=== PATIENT | female | born 2005 | race Caucasian/White ===

== ENCOUNTER 2024-03-23 17:43 | Inpatient (IN) | payer MEDICAID, SELFPAY ==
[2024-03-23] VITALS (25 sets, daily range): BP systolic 112–144; BP diastolic 31–98; PULSE 96–140; RESP 14–99; TEMP 36.8; O2SAT 97–100; BMI 26.7
--- NOTE | 2024-03-23 18:28 | XR_ITS ---
Examination: Complete OB ultrasound greater than 14 weeks Date and time of exam: March 23, 2024 1835 hrs. Indications: Pelvic pain back pain pelvic contractions one week Findings: Viable intrauterine single fetus with single amniotic sac Cephalic Cardiac motion 121 BPM Placenta posterior no abruption grade 2 Umbilical cord insertion seen Study terminated before measurement of amniotic fluid spine maternal right Cervix 4.0 cm Composite estimated gestational age based on BPD, head circumference, abdominal circumference, femur length is 38 weeks 4 days Estimated weight 3565 g. Survey of intracranial anatomy, spinal anatomy, abdominal anatomy, four-chamber heart performed with no abnormalities identified. Impression: Limited study Viable intrauterine gestation cephalic presentation. Placenta posterior no abruption Estimated gestational age 38 weeks 4 days.
[2024-03-23] MEDS: RINGERS LACTATED 1000 ML 1,000 ML 999 ML IV (18:40)
[2024-03-23] MEDS: FAMOTIDINE INJ 10 MG/ML VIAL 2 ML 20 MG IV (19:02)
[2024-03-23] MEDS: METOCLOPRAMIDE INJ 5 MG/ML VIAL 2 ML 10 MG IVP (19:02)
[2024-03-23 19:03] LABS: Collection Type, Urine Voided
[2024-03-23] MEDS: ceFAZolin/D5W 2 GM IV 2 GM/100 ML BAG IV (19:03)
--- NOTE | 2024-03-23 19:08 | PD.LDHP ---
Documentation for date of: 03/23/24 OB Labor/Induct. HPI History of Present Illness History of present illness: H and P dictated on STAT line #9 in [facility] [id number]. Meds Home Medications and Allergies Allergies Allergy/AdvReac Type Severity Reaction Status Date / Time No Known Allergies Allergy Verified 02/24/18 15:14 OB Exam Physical Exam Vital signs: Pulse BP Pulse Ox 96 138/89 H 99 03/23/24 19:01 03/23/24 19:01 03/23/24 18:59 OB Results Labs 03/23/24 18:35 03/23/24 18:35
[2024-03-23 19:11] LABS: Basophils % (Auto) 0 % (0-2.5); Eosinophils % (Auto) 0 % (0-10); Hematocrit 34.6 % (36.0-46.0); Hemoglobin 11.3 g/dL (12.0-16.0); Immature Granulocytes % (Auto) 0 % (0-0); Immature Granulocytes Auto 0.04 Thou/mm3 (0.00-0.00); Lymphocytes # (Auto) 1.1 Thou/mm3 (1.0-4.8); Lymphocytes % (Auto) 12 % (10-50); Mean Corpuscular HGB Conc 32.7 g/dl (31.0-37.0); Mean Corpuscular Hemoglobin 26.2 pg (25.0-35.0); Mean Corpuscular Volume 80 fL (80-100); Monocytes # (Auto) 0.6 Thou/mm3 (0.0-0.8); Monocytes % (Auto) 7 % (0-12); Neutrophils # (Auto) 7.3 Thou/mm3 (1.8-7.7); Neutrophils % (Auto) 80 % (37-80); Nucleated Red Blood Cell % 0 /100 WBC (0); Platelet Count 110 Thou/mm3 (140-440); RDW Standard Deviation 54.5 fL (36.4-46.3); Red Blood Count 4.32 Miln/mm3 (4.00-5.20); White Blood Count 9.1 Thou/mm3 (4.5-11.0)
[2024-03-23 19:18] LABS: Bilirubin,Urine Negative (Negative); Blood,Urine Negative (Negative); Clarity,Urine Clear (Clear/Hazy); Color,Urine Lt-Yellow (Lt Yel-Yel); Glucose, Urine Negative (Negative); Ketones,Urine Negative (Negative); Leukocyte Esterase,Urine Positive (Negative); Nitrite,Urine Negative (Negative); Protein,Urine Negative (Neg - Trace); RBC,Urine 1 /hpf (0-3); Specific Gravity,Urine 1.009 (1.001-1.035); Squamous Epithelial Cell,Urine 5 /hpf (0-5); Urobilinogen,Urine Negative mg/dL (0.0-1.0); WBC,Urine 4 /hpf (0-5)
[2024-03-23 19:38] LABS: Fibrinogen 439 mg/dL (175-375); INR 0.9 (0.9-1.3); Partial Thromboplastin Time 23.8 Seconds (22.0-36.0)
[2024-03-23 19:48] LABS: Anion Gap 9 (7-16); BUN/Creatinine Ratio 10 Ratio (12-20); Blood Urea Nitrogen 6 mg/dL (9-23); Chloride 106 mMol/L (98-107); Creatinine (Component) 0.6 mg/dL (0.6-1.3); Estimated Creatinine Clearance 133.7 mL/min (>60); Glucose 101 mg/dL (74-106); Potassium 4.1 mMol/L (3.4-5.1); Sodium 138 mMol/L (136-145); eGFR > 60 See Note
[2024-03-23 19:49] LABS: Alanine Aminotransferase 10 U/L (10-49); Albumin/Globulin Ratio 1.8 (1.2-2.2); Alkaline Phosphatase 142 U/L (46-116); Aspartate Amino Transferase 17 U/L (0-34); Bilirubin,Total 0.3 mg/dL (0.3-1.2); Calcium 9.5 mg/dL (8.3-10.6); Calcium (Corrected) 9.5 mg/dL (8.5-10.1); Globulin 2.2 gm/dL (2.3-3.5); LDH (Lactate Dehydrogenase) 202 U/L (120-246); Osmolality,Calculated 273 (275-295); Total Protein 6.2 gm/dL (5.7-8.2)
[2024-03-23 19:56] LABS: Syphilis Nonreactive (Nonreactive)
--- NOTE | 2024-03-23 20:05 | ESDS_ITS ---
DS: Providers Provider Date of admission: 03/23/24 19:55 Primary care physician: Physician No Primary/Family Admitting Provider: Jorge Luis King MD Attending Provider on Admission: Jorge Luis King MD Attending Provider on DC: Jorge Luis King MD Discharging Provider: Jorge Luis King MD DS: Diagnosis Discharge Diagnosis (1) Gestational hypertension: Status: Acute (2) Placental abruption: Status: Acute (3) delivery delivered: Status: Acute (4) Endometriosis: Status: Acute Problem List Completed Was Problem List Reviewed/Reconciled?: Yes Summary/Hosp Course Brief History: H and P dictated on STAT line #[address] [facility] [id number]. Time Spent with Patient Time attestation: Total time spent providing and/or coordinating discharge services: Exam Vital Signs Temp Pulse Resp BP Pulse Ox 98.2 F 96 16 138/89 H 99 03/23/24 18:02 03/23/24 19:01 03/23/24 18:02 03/23/24 19:01 03/23/24 18:59 Discharge Plan Plan Patient Disposition: HOME (Self Care) Patient condition on transfer: Stable Prescriptions/Referrals Prescriptions/Med Rec: New hydrocodone-acetaminophen 5-325 mg tablet 1 tab PO Q6H MDD 4 PRN (Reason: pain) Qty: 20 0RF ibuprofen 600 mg tablet 600 mg PO Q6H PRN (Reason: pain) Qty: 30 0RF No Action 27 mg iron- 0.8 mg Tablet 1 tab PO QDAY ferrous sulfate 325 mg (65 mg iron) tablet 325 mg PO QDAY Referrals: No Primary/Family,Physician [Primary Care Provider] - Patient/Caregiver Discharge Instructions Discharge Activity: activity as tolerated Other Discharge Activity Instructions:: Follow up office 1 week. Print Language: Sami Stand Alone Forms: Jennifer Award Info., Patient Portal Info Letter Planned Discharge Date 03/25/24
[2024-03-23] MEDS: OXYTOCIN in NS 20 units 20 UNIT/1,000 ML BAG 125 UNIT IV (20:10)
[2024-03-23] MEDS: KETOROLAC INJ 30 MG/ML VIAL IVP (21:59)
[2024-03-24] VITALS (7 sets, daily range): BP systolic 111–136; BP diastolic 75–89; PULSE 84–105; RESP 16–18; TEMP 36.9–37.1; O2SAT 96–99
[2024-03-24] MEDS: OXYTOCIN in NS 20 units 20 UNIT/1,000 ML BAG 125 UNIT IV (01:52)
[2024-03-24 02:23] LABS: Basophils % (Auto) 0 % (0-2.5); Eosinophils % (Auto) 0 % (0-10); Hematocrit 30.7 % (36.0-46.0); Hemoglobin 10.1 g/dL (12.0-16.0); Immature Granulocytes % (Auto) 0 % (0-0); Immature Granulocytes Auto 0.07 Thou/mm3 (0.00-0.00); Lymphocytes # (Auto) 1.2 Thou/mm3 (1.0-4.8); Lymphocytes % (Auto) 7 % (10-50); Mean Corpuscular HGB Conc 32.9 g/dl (31.0-37.0); Mean Corpuscular Hemoglobin 26.6 pg (25.0-35.0); Mean Corpuscular Volume 81 fL (80-100); Monocytes # (Auto) 1.1 Thou/mm3 (0.0-0.8); Monocytes % (Auto) 6 % (0-12); Neutrophils # (Auto) 14.9 Thou/mm3 (1.8-7.7); Neutrophils % (Auto) 86 % (37-80); Nucleated Red Blood Cell % 0 /100 WBC (0); Platelet Count 99 Thou/mm3 (140-440); RDW Standard Deviation 55.5 fL (36.4-46.3); Red Blood Count 3.79 Miln/mm3 (4.00-5.20); White Blood Count 17.4 Thou/mm3 (4.5-11.0)
[2024-03-24 02:44] LABS: Amphetamine/Metham Scrn,Ur OB Negative (Negative); Benzoylecgonine Screen, Ur OB Negative (Negative); Opiate Screen,Urine OB Positive (Negative); THC Screen,Urine OB Negative (Negative)
[2024-03-24 02:45] LABS: Opiates U Confirm* See Sep Rpt
[2024-03-24] MEDS: ceFAZolin/D5W 2 GM IV 2 GM/100 ML BAG IV ×3 (02:59→23:37)
[2024-03-24] MEDS: KETOROLAC INJ 30 MG/ML VIAL IVP ×3 (04:07→16:52)
--- NOTE | 2024-03-24 07:39 | ESHP_ITS ---
RE: BARBARA SANCHES : 2005 DATE OF ADMISSION: 03/23/2024 HISTORY OF PRESENT ILLNESS: This is a 18-year-old 1, para 0, with due date of 04/10, with intrauterine at 37 weeks and 3 days who presents to labor and delivery complaining of vaginal bleeding and severe abdominal and back pain rating at 8/10. Upon presentation to labor and delivery, the patient was noted to have elevated blood pressures and maternal heart rate as high as 140 with category 1 tracing and uterine tachysystole. The patient reports feeling contractions, but also having tense abdomen in between the contractions and she cannot get comfortable. ALLERGIES: NO KNOWN DRUG ALLERGIES. MEDICATIONS: 1. multivitamin 1 p.o. daily. 2. Ferrous sulfate 325 mg one p.o. daily. PAST MEDICAL HISTORY: Gestational hypertension, gestational thrombocytopenia, iron deficiency anemia. PAST SURGICAL HISTORY: Denies. SOCIAL HISTORY: She has use of marijuana early in the with a positive urine drug screen, 09/22/2023. FAMILY HISTORY: Breast cancer. REVIEW OF SYSTEMS: She denies any chest pain, palpitations, shortness of breath or lower extremity pain. PHYSICAL EXAMINATION: VITAL SIGNS: Blood pressure 148/94 mmHg, heart rate 120 bpm, respirations 18, temperature 98.6. HEENT: Oropharynx and sclerae are clear. LUNGS: Clear to auscultation bilaterally. HEART: Regular rate and rhythm. ABDOMEN: Term size. Fundus is tender to palpation with no relaxation between contractions. EXTREMITIES: Nontender. SKIN: No gross rashes or lesions. NEUROLOGIC: No focal deficits. ASSESSMENT: Intrauterine at 37 weeks and 3 days, gestational hypertension, gestational thrombocytopenia, placental abruption. PLAN: Emergency delivery. Informed consent was obtained. The patient made aware of the risks, complications, alternatives and benefits of the proposed procedure and she agrees. DT: 19:07:45 TT: 20:21:00 Ref: [id number] - TID: [id number] MTDD
--- NOTE | 2024-03-24 07:40 | ESOP_ITS ---
RE: BARBARA SANCHES : 2005 DATE OF OPERATION: 03/23/2024 PREOPERATIVE DIAGNOSES: Intrauterine at 37 weeks' gestation, maternal tachycardia, uterine tachysystole, vaginal bleeding and clinical examination consistent with placental abruption. POSTOPERATIVE DIAGNOSES: Intrauterine at 37 weeks' gestation, maternal tachycardia, uterine tachysystole, vaginal bleeding, placental abruption confirmed, and endometriosis. PROCEDURE PERFORMED: Primary low transverse section via Pfannenstiel skin incision. SURGEON: Jorge Luis King DO COTTRELL OPERATOR: UBALDO Lopez ANESTHESIA: Spinal. ANESTHESIOLOGIST: Giovanni Leonardo CRNA ESTIMATED BLOOD LOSS: 700 mL. COMPLICATIONS: None. COUNTS: Correct. PATHOLOGY: Placenta. FINDINGS: A live infant, cephalic presentation. clear amniotic fluid. , see RN notes. Inferior placental edge with placental abruption. Superficial endometriotic implants on the both. Posterior uterosacral ligaments in both ovaries. DESCRIPTION OF PROCEDURE: After proper informed consent was obtained and the patient was made aware of the risks, complications, alternatives, and benefits of the proposed procedure, she was taken to the operating room where she underwent induction of spinal anesthesia. She was placed in the dorsal supine position. She was prepped and draped in the usual sterile fashion. A timeout was performed. A Pfannenstiel skin incision was made with scalpel and carried through to the underlying layer of fascia with the Bovie. The fascia was nicked in the midline. Incision was extended bilaterally with the Bovie. The inferior aspect of the fascial incision was grasped with Manuel clamps and elevated. The underlying rectus muscles were dissected off with the Bovie. The rectus muscles were in the midline. The peritoneum was identified between 2 Terrell clamps and entered sharply with Metzenbaum scissors. The incision was extended superiorly and inferiorly with good visualization of the bladder. The bladder blade was then inserted. The vesicouterine peritoneum was incised transversely and bladder flap was created digitally. Bladder blades were reinserted. The lower uterine segment was incised in transverse fashion with scalpel. The incision was extended bilaterally digitally. The 's head was delivered. The mouth and nose were suctioned with bulb suction. Shoulder and body were delivered atraumatically. The cord was clamped and cut. The infant was handed off to the awaiting pediatric staff. Cord blood was sent. Placenta was then removed manually. A quarter of the placenta was from the wall of the uterus with large retroplacental hemorrhage. The placenta was sent to Pathology. The uterus was exteriorized and cleared of all clots and debris. The uterine incision was repaired with #1-0 chromic catgut suture in a running locking fashion. A second layer of same suture was used to imbricate the first layer and obtained excellent hemostasis. The vesicouterine peritoneum was closed with 2-0 chromic catgut suture in running fashion. The uterus was firm. It was returned to the abdomen. The gutter was cleared of all clots and debris. The peritoneum was closed with 0 chromic catgut suture in running fashion. The muscle was closed with 0 chromic catgut suture in running fashion. The fascia was closed with 0 Vicryl beginning at each angle and ending at center in running fashion. Subcutaneous tissue was irrigated with normal saline solution and found to be hemostatic, closed with 2-0 chromic catgut suture in running fashion. The skin was closed with 4-0 Monocryl. Dermabond Prineo dressing was applied. A sterile pressure dressing was applied. She tolerated the procedure well. Counts were correct. I discussed with the patient the nature of her condition, intraoperative findings, and expectation for recovery. All questions were answered. DT: 20:02:23 TT: 21:34:00 Ref: [id number] - TID: [id number] MTD
--- NOTE | 2024-03-24 07:48 | ESPR_ITS ---
RE: BARBARA SANCHES : 2005 DATE OF SERVICE: 03/24/2024 Postop day #1. The patient denies any problem or complaint. She has got adequate urine output in her Dawson catheter. She denies any nausea or vomiting. She is tolerating a regular diet. She is passing flatus. She denies any excessive vaginal bleeding. She denies any dizziness or lightheadedness. She denies any chest pain, palpitations, shortness of breath or lower extremity pain. OBJECTIVE: Vital Signs: Blood pressure 124/77, heart rate 84, respirations 16, temperature is 98.7. Lungs: Clear to auscultation bilaterally. Heart: Regular rate and rhythm. Abdomen: Fundus is firm. Dressing dry and intact. Extremities: Nontender. Hemoglobin pre-delivery is 11.3, post-delivery is 10.1. Platelet count is 99,000. ASSESSMENT: Postoperative day #1 status post delivery. Anemia, but hemodynamically stable. Gestational thrombocytopenia with stable platelet count. PLAN: Remove dressing, encourage ambulation, support, prophylactic antibiotics for 24 hours, monitor for spontaneous voiding. DT: 07:29:03 TT: 07:47:00 Ref: [id number] - TID: [id number]
--- NOTE | 2024-03-24 11:05 | PC.SS ---
OPEN SHANK COVERER conducted bedside contact with the patient to address nursing referral indicating patient possessed history of THC use. OPEN SHANK COVERER introduced self and role. Present with patient was mother, sister and Nicanor LANDAVERDE Burton. Patient gave permission for OPEN SHANK COVERER to discuss basis of referral with visitors present. Patient confirmed use of THC for recreational purposes. Upon confirmation of patient ceased use. Patient informed OPEN SHANK COVERER of no further plans to utilize THC. Patient?s toxicology report negative. Patient resides with FOB and family. Harper, Emily; is the patient?s first child. Infant delivered via . Patient plans on breast feeding infant. Patient?s WIC application is pending. Patient is not aligned with SNAP or TANF. Patient denies history of alcohol/drug abuse. Patient denies CWS intervention. Patient denies episodes of domestic violence. Dr. King provided OB services. Patient states consistency with OB appointments. Patient describes Nicanor LANDAVERDE; as involved with the (Emily). Patient has access to appropriate supplies and equipment. Family will provide transportation upon discharge. Patient describes possessing support system consisting of FOB and family. OPEN SHANK COVERER provided patient with community resources to include: [employer], Warm Line and community information. No further intervention required at this time, social sciences chair will be available to address any further concerns. OPEN SHANK COVERER updated bedside nurse.
[2024-03-24] MEDS: RINGERS LACTATED 1000 ML 1,000 ML 125 ML IV (15:35)
[2024-03-24] MEDS: IBUPROFEN TAB 400 MG TABLET 800 MG PO (21:46)
[2024-03-25 04:00] VITALS: BP 126/81; PULSE 94; RESP 16; TEMP 36.9; O2SAT 99
[2024-03-25] MEDS: HYDROcodone/APAP 5/325 TABLET 1 TAB PO ×2 (04:44→09:01)
[2024-03-25] MEDS: ceFAZolin/D5W 2 GM IV 2 GM/100 ML BAG IV (08:04)
[2024-03-25 08:30] VITALS: BP 127/84; PULSE 92; RESP 18; TEMP 37.3; O2SAT 99
--- NOTE | 2024-03-25 08:56 | PD.LDDELS ---
Data ([facility]) Data : 1 Para: 0 Term: 0 : 0 : 0 Delivery Data ([facility]) Labor Data ROM Date: 03/23/24 ROM Time: 19:22 Rupture Type: AROM Amniotic Fluid: Clear Delivery Data EDC: 04/10/24 EDC calculated by:: LMP/early US confirmation Labor Onset Stage 1 Date: 03/23/24 Labor Onset Stage 1 Time: 19: Labor Onset Stage 2 Date: 03/23/24 Labor Onset Stage 2 Time: 19:22 Delivery Date: 03/23/24 Delivery Time: 19:22 Gestational age (weeks): 37 Gestational age (days): 3 Placenta Delivery Date: 03/23/24 Placenta Delivery Time: 19:23 Delivered by: Jorge Luis King Delivery nurse: Jillian Joe Other staff at delivery: Nurse Other staff at delivery: Kadi Jefferson Delivery Method Delivery: Delivery Type: Primary Presentation: Vertex Position: OA Anesthesia Type Primary Anesthesia: Spinal Placenta Placenta Delivery: Manual Placenta Cultures Obtained: No Placenta Sent for Examination: Yes Cord Sample: Cord Blood Obtained EBL Estimated blood loss (ml): 700 Additional Procedures None Complications Complications: None [place] Data ([facility]) [place] Data Infant Gender: Female Infant Weight Grams: 3410 1 Minute Total: 9 5 Minute Total: 9
--- NOTE | 2024-03-25 09:49 | ESPR_ITS ---
RE: BARBARA SANCHES : 2005 DATE OF SERVICE: 03/25/2024 S: Postop day #2, the patient denies any problem or complaints. She is voiding. She is ambulating. She is tolerating regular diet. She is passing flatus. She denies any excessive vaginal bleeding. She denies any dizziness or lightheadedness. She denies any chest pain, palpitations, shortness of breath or lower extremity pain. O: Vital Signs: Blood pressure is 127/84, heart rate 92, respirations 18, temperature 99.1, pulse ox is 99% on room air. Lungs: Clear to auscultation bilaterally. Heart: Regular rate and rhythm. Abdomen: Incision is clear and intact. Fundus is firm. Extremities: Nontender. ASSESSMENT: Postop day #2 status post delivery, anemia, but hemodynamically stable, gestational thrombocytopenia. P: Discharge home. Discharge instructions given. Follow up in the office in 1 week. DT: 08:54:48 TT: 09:48:00 Ref: [id number] - TID: [id number]
== END 2024-03-25 10:55 | disposition home or self-care (01) | DRG 540 ==
LOC: S4SX 17:51 → S4NX 19:10
PROVIDERS: Admitting Provider Specialist; Visit Provider Specialist
PROC: 10D00Z1 Extraction of Products of Conception, Low, Open Approach (ICD-10-PCS; CPT 59514; principal; 2024-03-23 19:10)
DX: O45.93 Premature separation of placenta, unspecified, third trimester (principal); Z3A.37 37 weeks gestation of pregnancy; Z37.0 Single live birth; O13.4 Gestational [pregnancy-induced] hypertension without significant proteinuria, complicating childbirth; N80.113 Superficial endometriosis of bilateral ovaries; N80.3A3 Superficial endometriosis of the bilateral uterosacral ligament(s); O34.83 Maternal care for other abnormalities of pelvic organs, third trimester
CPT/HCPCS: 36415; 76805; 80053; 80307; 81001; 83605; 83615; 84145; 84550; 85025; 85384; 85610; 85730; 86780; 86850; 86900; 86901; 86923; 87040; 87086; 94762; J0689; J1885; J2274; J2371; J2405; J2590; J2704; J2765; J3010; J3490; J7120; A9270; J2270